=== PATIENT | male | born 1975 | race Caucasian/White ===

== ENCOUNTER 2019-08-31 05:02 | Emergency (ER) | payer MEDICAID, OTHER ==
[~2019-08-31] VITALS: Ht 175.3 cm; Wt 95.3 kg
[2019-08-31 05:53] VITALS: BP 120/82
== END 2019-08-31 06:37 | disposition left against medical advice (07) ==
LOC: ER 05:02
DX: K08.89 Other specified disorders of teeth and supporting structures (principal); Z53.21 Procedure and treatment not carried out due to patient leaving prior to being seen by health care provider
CPT/HCPCS: 71045; 93005

== ENCOUNTER 2021-03-07 01:19 | Emergency (ER) | payer MEDICAID ==
[~2021-03-07] VITALS: Ht 177.8 cm; Wt 95.3 kg
[2021-03-07] MEDS ORDERED: BACITRACIN TOP OINT 1 UD PKG TOP ONE (01:30)
[2021-03-07] MEDS ORDERED: cefTRIAXone SOD 1,000 MG VL IM ONE (01:30)
[2021-03-07] MEDS ORDERED: TETANUS-DIPTH-ACEL PERTUSSIS 0.5ML SYR Tdap IM ONE (01:30)
[2021-03-07 04:13] VITALS: BP 112/79
== END 2021-03-07 04:24 | disposition home or self-care (01) ==
LOC: ER 01:19
DX: S81.852A Open bite, left lower leg, initial encounter (principal); S81.832A Puncture wound without foreign body, left lower leg, initial encounter; L08.9 Local infection of the skin and subcutaneous tissue, unspecified; L03.116 Cellulitis of left lower limb; E66.9 Obesity, unspecified; Z68.30 Body mass index [BMI] 30.0-30.9, adult; W54.0XXA Bitten by dog, initial encounter; Y93.89 Activity, other specified; Y92.89 Other specified places as the place of occurrence of the external cause; Y99.8 Other external cause status
CPT/HCPCS: 73590; 90471; 90715; 96372; 99284; J0696